=== PATIENT | male | born 1945 | race Caucasian/White ===

== ENCOUNTER 2020-04-23 07:19 | Day surgery (SDC) | payer OTHER ==
--- NOTE | 2020-04-22 07:06 | EKG ---
Test Date: 2020-04-21 Test Time: 11:52:20 [place] Administrator: LUANNE MEASUREMENT RESULTS: Intervals: Rate: 54 SD: 188 QRSD: 86 QT: 410 QTc: 388 [place]: P: 24 SD: 188 QRS: 42 T: 47 INTERPRETIVE STATEMENTS: Sinus bradycardia Otherwise normal ECG Compared to ECG 09/24/2007 05:41:30 No significant changes Electronically Signed On 04-22-20 07:04:00 CDT by Gene Carrasco
--- OUTSIDE RECORDS SUMMARY | 2020-04-23 07:29 | XMS REPORT | Continuity of Care Document ---
:1945 Author Organization [facility] t Address 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 [id number] [place] [id number] 00:00:00 Met hernández /Lor al Problems Condition Condition Condition Status Onset Resolution Last Treating Co mments Source Name Details Category Date Date Treatment Clinician Date H/O right H/O right Disease Active Jordyn stoesau coronary coronary 8-04 [facility] i artery artery 00:00: st stent stent 00 placement placement Bilateral Bilateral Disease Active Jordyn ston carotid carotid 8-04 [facility] bruits bruits 00:00: st 00 SOB SOB Disease Active [facility] (shortness (shortness 8-04 [facility] of breath) of breath) 00:00: st 00 Essential Essential Disease Active Jordyn ston hypertensi hypertensi 5-16 [facility] on 00:00: st 00 Hyperlipid Hyperlipid Disease Active John shirley 11-21 [facility] 00:00: st 00 Coronary Coronary Disease Active [place] artery artery 11-21 [facility] disease disease 00:00: st involving involving 00 [place] coronary coronary artery of artery of [place] heart heart without without angina angina pectoris pectoris Stented Stented Disease Active [place] coronary coronary 11-21 [facility] i artery artery 00:00: st 00 Allergies, Adverse Reactions, Alerts This patient has no known allergies or adverse reactions. Family History Family Member Diagnosis Comments Start Date Stop Date Source Natural mother Coronary artery [place] W[facility] disease Social History Social Habit Start Date Stop Date Quantity Comments Source Sex Assigned At Jordyn Wong Smoking Status Start Date Stop Date Source Current every day smoker 2016-11-21 00:00:00 Jordyn Wong Medications Ordered Filled Start Stop Current Ordering Indication Dosage Frequency Signature Comments Components Source Medication Medication Date Date Medication? Clinician (SIG) Name Name atorvastati Yes 20mg QD Take 1 [place] (Lipitor) 9-17 tablet (20 [facility] 20 mg 00:00: mg total) st tablet 00 by mouth daily. Default OP ins candesartan 2019-0 2020- No 32mg QD Take 32 mg [place] (ATACAND) 02-09 by mouth Metho di 32 MG 13:37: 00:[address] tablet 29 :00 MULTIVITAMI 2019- Yes QD Take by Jordyn Mckenna/IRON/FOLI 8-04 mouth [facility] C ACID 13:16: daily. st (CENTRUM 03 COMPLETE ORAL) UBIDECARENO 2019- Yes QD Take by Jordyn goldberg NE/VITAMIN 8-04 mouth [facility] E MIXED 13:16: daily. st (COQ10 SG 03 100 ORAL) aspirin 81 2020-0 Yes 81mg Chew 81 [place] mg chewable 8-04 mg. [facility] tablet 13:16: st 03 candesartan 2020-0 2020- Yes H/O right 1{tbl} QD Take 1 [place] -hydrochlor -10 14- coronary tablet by [facility] othiazid 00:00: 23:[address] (Atacand 00 :00 stent daily. HCT) placement 32-12.5 mg per tablet atorvastati 2019-0 2020- No 20mg QD Take 1 Jordyn goldberg n (Lipitor) 6-22 09-17 tablet (20 M ethodi 20 mg 00:00: 00:00 mg total) st tablet 00 :00 by mouth daily. Default OP ins atorvastati 2020- No atorvastat Rubio n (Lipitor) 09-30-25 in calcium M ethodi 20 MG 11:14: 00:[address] tablet 50 :00 atorvastati 2020- No 20mg QD Take 1 Jordyn goldberg n (Lipitor) 09-30- tablet (20 M ethodi 20 MG 00:00: 00:00 mg total) st tablet 00 :00 by mouth daily. Default OP ins atorvastati 2020- No 20mg QD Take 1 Jordyn goldberg n (LIPITOR) 09-16 03-10 tablet (20 M ethodi 20 MG 00:00: 23:59 mg total) st tablet 00 :00 by mouth daily. levothyroxi 2017-0 Yes QD daily. [place] ne 4-28 [facility] (SYNTHROID, 00:00: st LEVOXYL) 50 00 mcg tablet metoprolol 2017-0 Yes QD daily. [place] succinate 4-21 [facility] XL 00:00: st (TOPROL-XL) 00 100 mg 24 hr tablet Vital Signs Vital Name Observation Time Observation Value Comments Source Systolic blood 2020-02-10 13:15:00 179 mm[Hg] [place] [facility] pressure Diastolic blood 2020-02-10 13:15:00 84 mm[Hg] [place] [facility] pressure Heart rate 2020-02-10 13:15:00 54 /min Rubio Wong Body height 2020-02-10 13:15:00 182.9 cm Rubio Wong Body weight 2020-02-10 13:15:00 93.441 kg Rubio Wong BMI 2020-02-10 13:15:00 27.94 kg/m2 Rubio Wong Procedures Procedure Date / Time Performed Performing Clinician Sour e NM MYOCARDIAL PERFUSION 2020-03-24 15:55:07 Ofelia Sanchez REST STRESS 1 DAY CV STRESS TEST 2020-03-23 12:47:49 Ofelia Sanchez Meth odist US CAROTID DUPLEX 2020-03-09 09:49:23 Ofelia Sanchez Id thodist BILATERAL ECG 12-LEAD 2020-02-10 12:10:20 Ofelia Sanchez Meth odist Plan of Care Planned Activity Planned Date Details Comments Source Future Scheduled 2020-02-07 INFLUENZA VACCINE [place] [facility] 00:00:00 [code = INFLUENZA VACCINE] Future Scheduled 2012-12-04 65+ PNEUMOCOCCAL [place] [facility] Test 00:00:00 VACCINE (1 of 1 - PPSV23) [code = 65+ PNEUMOCOCCAL VACCINE (1 of 1 - PPSV23)] Future Scheduled 1997-12-04 COLONOSCOPY SCREENING [place] [facility] 00:00:00 [code = COLONOSCOPY SCREENING] Future Scheduled 1997-12-04 SHINGLES VACCINES (#1) [place] [facility] 00:00:00 [code = SHINGLES VACCINES (#1)] Encounters Start End Encounter Admission Attending Care Care Encounter Source Date/Time Date/Time Type Type Clinicians Facility Department ID 2020-03-23 2020-03-23 Outpatient [facility] [id number] [facility] 00:00:00 00:00:00 OFELIA 037 Method i 2020-03-09 2020-03-09 Outpatient [facility] [id number] [facility] 00:00:00 00:00:00 OFELIA 808 Method i 2020-02-10 2020-02-10 Outpatient [facility] [id number] Hall 00:00:00 00:00:00 OFELIA 938 Method i 2019-11-07 2019-11-07 Orders JEANNIE Rodriguez [id number] 00:00:00 00:00:00 Only Andrew CARRIZALES [id number] [facility] [id number] 2019-11-04 2019-11-04 Telephone HAYDEN Rodriguez [id number] 00:00:00 00:00:00 Andrew Muller [id number] [place] [id number] Professio [phone] [address] 2019-10-31 2019-10-31 Telemedici HAYDEN Rodriguez [id number] 09:51:02 16:02:50 ne Visit Andrew Muller [id number] [facility] [id number] [facility] [id number] nal [address] Building Results Test Description Test Time Test Comments Results Result Comments Source ECG 12 lead 2020-02-11 00:13:20 Test Item Value Reference Range Interpretation Comme nts Ventricular rate (test code = 253) 54 Atrial rate (test code = 255) 54 OK interval (test code = 266) 188 QRSD interval (test code = 260) 94 QT interval (test code = 264) 424 QTC interval (test code = 265) 402 P axis 1 (test code = 267) 49 QRS axis 1 (test code = 268) 59 T wave axis (test code = 270) 46 EKG impression (test code = 273) Sinus bradycardia-Otherwise normal ECG-In automated comparison with ECG of 07-JAN-2019 10:17,-No significant change was found- Rubio Wong
--- OUTSIDE RECORDS SUMMARY | 2020-04-23 07:29 | XMS REPORT | Clinical Summary ---
:1945 Author Organization [facility] Address [address] [place] [address] Care Team Providers Name Role Phone Juan Antonio Red MD Primary Care Provider Allergies Active Allergy Reactions Severity Noted Date Comments No Known Drug Allergies Medications Medication Sig Dispensed Refills Start End Date Status Date levothyroxine daily. 0 Active (SYNTHROID, 7 LEVOXYL) 50 mcg tablet metoprolol daily. 0 Active succinate XL 7 (TOPROL-XL) 100 mg 24 hr tablet MULTIVITAMIN/IRON/ Take by mouth 0 Active FOLIC ACID daily. (CENTRUM COMPLETE ORAL) UBIDECARENONE/CATRINA Take by mouth 0 Active MIN E MIXED (COQ10 daily. SG 100 ORAL) aspirin 81 mg Chew 81 mg. 0 Acti ve chewable tablet candesartan-hydroc Take 1 tablet by 90 tablet 3 08/0 10/26 Active hlorothiazid mouth daily. 0 21 (Atacand HCT) 32-12.5 mg per tabletIndications: Coronary artery disease involving te-moak coronary artery of te-[place] heart without angina pectoris, SOB (shortness of breath), Bilateral carotid bruits, H/O right coronary artery stent placement atorvastatin Take 1 tablet 90 tablet 0 Act rocío (Lipitor) 20 mg (20 mg total) by 0 tablet mouth daily. Default OP ins candesartan Take 32 mg by 0 02/10/20 Disc ontinued (ATACAND) 32 MG mouth daily. 20 ( Formulary tablet change) atorvastatin Take 1 tablet 90 tablet 3 09/16/19 Exp ired (LIPITOR) 20 MG (20 mg total) by 9 20 tablet mouth daily. atorvastatin atorvastatin 0 10/01/19 Disc ontinued (Lipitor) 20 MG calcium 20 mg 20 (Reorder) tablet tabs atorvastatin Take 1 tablet 90 tablet 0 12/29/19 Dis continued (Lipitor) 20 MG (20 mg total) by 0 20 (Reorder) tablet mouth daily. Default OP ins atorvastatin Take 1 tablet 90 tablet 0 03/25/20 Dis continued (Lipitor) 20 mg (20 mg total) by 0 20 (Reorder) tablet mouth daily. Default OP ins Active Problems Problem Noted Date H/O right coronary artery stent placement 02/10/2020 Bilateral carotid bruits 02/10/2020 SOB (shortness of breath) 02/10/2020 Chronic coronary artery disease 11/21/2016 Essential hypertension 11/21/2016 Hyperlipidemia 11/21/2016 Coronary artery disease involving te-moak coronary holly ry of te-moak heart 11/21/2016 without angina pectoris Stented coronary artery 11/21/2016 Encounters Date Type Specialty Care Team Description 03/25/2020 Orders Only Cardiology Ben Waters MA 03/23/2020 Travel 03/16/2020 Orders Only Cardiology Sharon Buckley MA Bilater al carotid bruits (Primary Dx); Coronary artery disease involving te-moak coronary artery of te-[place]ak heart without angina pectoris; H/O right coron joe artery stent placement 03/09/2020 Travel 02/10/2020 Office Visit Cardiology Ofelia Sanchez MD Coronary artery disease involving te-moak coronary artery of te-moak heart without angina pectoris (Primary Dx); SOB (shortness of breath); Bilateral carot id bruits; H/O right coron oje artery stent placement 02/10/2020 Travel 12/29/2019 Orders Only Cardiology Ben Waters MA 10/01/2019 Refill Cardiology Sharon Buckley MA Med Ref ill after 04/23/2019 Medical History Medical History Date Comments Hypertension Hyperlipidemia Coronary artery disease Family History Medical History Relation Name Comments Coronary artery disease Mother Relation Name Status Comments Mother Social History Tobacco Use Types Packs/Day Years Used Date Current Every Day Smoker Sex Assigned at Date Recorded Not on file Last Filed Vital Signs Vital Sign Reading Time Taken Comments Blood Pressure 179/84 02/10/2020 1:15 PM CDT Pulse 54 02/10/2020 1:15 PM CDT Temperature - - Respiratory Rate - - Oxygen Saturation - - Inhaled Oxygen Concentration - - Weight 93.4 kg (206 lb) 02/10/2020 1:15 PM CDT Height 182.9 cm (6') 02/10/2020 1:15 PM CDT Body Mass Index 27.94 02/10/2020 1:15 PM CDT Plan of Treatment Date Type Specialty Care Team Description 09/13/2020 Appointment Radiology Ofelia Sanchez MD [address] [place], [place] [address] [phone] 02/08/2021 Office Visit Cardiology Ofelia Sanchez MD [address] [place], [place] [address] [phone] Health Maintenance Due Date Last Done Comments COLONOSCOPY SCREENING 12/04/1997 SHINGLES VACCINES (#1) 12/04/1997 65+ PNEUMOCOCCAL VACCINE (1 of 1 - PPSV23) 12/04/2012 INFLUENZA VACCINE 02/07/2020 04/27/2019 Procedures Procedure Name Priority Date/Time Associated Comments Diagnosis NM MYOCARDIAL Routine 03/24/2020 3:55 PM Coronary artery Resu lts for this PERFUSION REST CDT disease involving procedur e are in STRESS 1 DAY te-moak coronary the results artery of te-moak section. heart without angina pectoris SOB (shortness of breath) Bilateral carotid bruits H/O right coronary artery stent placement CV STRESS TEST Routine 03/23/2020 12:47 PM Coronary artery Res ults for this CDT disease involving procedure are in te-moak coronary the results artery of te-moak section. heart without angina pectoris SOB (shortness of breath) Bilateral carotid bruits H/O right coronary artery stent placement US CAROTID DUPLEX Routine 03/09/2020 9:49 AM Coronary artery Results for this BILATERAL CDT disease involving procedure are in te-moak coronary the results artery of te[place] section. heart without angina pectoris SOB (shortness of breath) Bilateral carotid bruits H/O right coronary artery stent placement ECG 12-LEAD Routine 02/10/2020 12:10 PM Coronary artery Resul ts for this CDT disease involving procedure are in te-moak coronary the results artery of te-[place]ak section. heart without angina pectoris after 04/23/2019 Results Nm myocardial perfusion (03/24/2020 3:55 PM CDT) Specimen Narrative Performed At [facility] Cardi ology and Cardiac CT [address] [address] Myocardial Pe rfusion Imaging Report Stress ECG tracings are availab le in CX, Postcard & Tag and FanKave All ECG interpretations a re included in this report Pat.Name: GENARO CLAIRE Pat.ID: [id number]Date: 03/23/2020 Refer.MD: OFELIA SANCHEZ MD Exam Time: 4:41:00 PM Study Type:Myocardial Perfusion Imaging Height: 72in Weight: 206lb BSA: 2.16 m2 Ag e: 1945,74Y Sex: MALE Nuclea r Tech:LATONYA Cuadra Nuclear Event ID:[id number] Order ID: [id number] Reason for Study:CAD, unspecified*, Shor tness of breath Procedures: Single Day Rest / Stress Race: Clinical Symptoms:Regadenoson 0.4 mg adm inistered intravenously over 10 seconds SUMMARY: BASELINE ECG Marked sinus bradycardia STRESS TEST RESULTS Maximal Predicted HR 148 beats/minute 85% Maximal Predicted HR 126 beats/minute Stress Test Duration 1 minutes 00 seco nds Resting Heart Rate 44 beats/minute Max imal Heart Rate 80 beats/minute Resting Blood Pressure 144/88 mmHg Max imal Blood Pressure 160/90 mmHg % Maximal Heart Rate Achieved 54% Symptoms During Test Dizziness Reason for Stopping Test As per regade noson protocol Maximal ST-segment shift None Stress-Induced Arrhythmias None Ischemic electrocardiographic changes (S T-segment depression) did not occur at peak regadenoson stress. STRESS TEST INTERPRETATION Normal maría elena l regadenoson stress test. SCINTIGRAPHIC RESULTS Perfusion Defect Size (% LV) 0 % Total 0 % Ischemia 0 % Scar Left Ventricular Perfusion Results There is normal tracer distribution duri ng stress and rest. Gated SPECT Results The post-stress left ventricular ejectio n fraction is 60 % with normal regional wall motion and left ventricula r thickening. Left ventricular end-diastolic volume is 95 m l; end-systolic volume is 38 ml. The left ventricle is of normal size at stress and at rest. The right ventricle is of normal size with n ormal wall motion. Conclusion Normal regadenoson Tc-99m sestamibi myoc ardial perfusion study. The left ventricular ejection fraction is no rmal. Comments Patients with a normal stress myocardial perfusion study have a low (< 1%) annual risk of cardiac or nonf atal myocardial infarction. Study Quality/Artifacts The study quality is good. The mild redu ction in mid and basal inferolateral wall counts during stress is probably due to diaphragmatic and other soft tissue atte nuation artifacts rather than coronary artery disease. Comparison to Previous Study None available. FINDINGS: Signed 03/25/2020 07:40 PM Juan Antonio Hurtado MD Procedure Note Interface, Radiology Results In - 2019 8:19 PM CDT [facility] and Cardiac CT [address] [place] [address] Myocardial Perfusion I maging Report Stress ECG tracings are available in MUSE, Postcard [employer] Tag and FanKave All ECG interpretations are in cluded in this report Pat.Name: GENARO CLAIRE Pat.I D: [id number] .Date: 03/23/2020 Refer .MD: OFELIA SANCHEZ MD Exam Time: 4:41:00 PM Study Type:Myocardial Perfusion Imaging Height: 72in Weigh t: 206lb BSA: 2.16 m2 Age: 5 1945,74Y Sex: MALE Nucle marquez Tech:LATONYA Cuadra Nuclear Event ID:[id number] Order ID: [id number] Reason for Study:CAD, unspecified*, Shor tness of breath Procedures: Single Day Rest / Stress Race: Clinical Symptoms:Regadenoson 0.4 mg adm inistered intravenously over 10 seconds SUMMARY: BASELINE ECG Marked sinus bradycardia STRESS TEST RESULTS Maximal Predicted HR 148 beats/minute 8 5% Maximal Predicted HR 126 beats/minute Stress Test Duration 1 minutes 00 secon ds Resting Heart Rate 44 beats/minute Maxi mal Heart Rate 80 beats/minute Resting Blood Pressure 144/88 mmHg Maxi mal Blood Pressure 160/90 mmHg % Maximal Heart Rate Achieved 54% Symptoms During Test Dizziness Reason for Stopping Test As per regaden oson protocol Maximal ST-segment shift None Stress-Induced Arrhythmias None Ischemic electrocardiographic changes (S T-segment depression) did not occur at peak regadenoson stress. STRESS TEST INTERPRETATION Normal maría elena l regadenoson stress test. SCINTIGRAPHIC RESULTS Perfusion Defect Size (% LV) 0 % Total 0 % Ischemia 0 % Scar Left Ventricular Perfusion Results There is normal tracer distribution duri ng stress and rest. Gated SPECT Results The post-stress left ventricular ejectio n fraction is 60 % with normal regional wall motion and left ventricula r thickening. Left ventricular end-diastolic volume is 95 m l; end-systolic volume is 38 ml. The left ventricle is of normal size at stress and at rest. The right ventricle is of normal size with n ormal wall motion. Conclusion Normal regadenoson Tc-99m sestamibi myoc ardial perfusion study. The left ventricular ejection fraction is no rmal. Comments Patients with a normal stress myocardial perfusion study have a low (< 1%) annual risk of cardiac or nonf atal myocardial infarction. Study Quality/Artifacts The study quality is good. The mild redu ction in mid and basal inferolateral wall counts during stress is probably due to diaphragmatic and other soft tissue atte nuation artifacts rather than coronary artery disease. Comparison to Previous Study None available. FINDINGS: Signed 03/25/2020 07:40 PM Juan Antonio Hurtado MD Performing Organization Address City/[facility] Phon e Number CUP[facility] [address] [place] [address] Cv stress test (03/23/2020 12:47 PM CDT) Resting HR 44 [facility] Resting BP 144&88 [facility] Peak MET Achieved 1.0 [facility] Protocol Name LexiScan [facility] Time in Exercise 00:01:00 [facility] Phase Max Systolic BP 160 H MUSE Max Diastolic BP 90 H MUSE Max Heart Rate 80 H MUSE Max Predicted Heart 148 H MUSE Rate Target HR Formula (220 - Age)*85% H MUSE Test Indication H MUSE Arrhy During Ex [facility] ECG Interp Before EX [facility] ECG Interp During Ex H MUSE Ex Summary Comment [facility] Chest Pain Statement none [facility] Overall HR Response H MUSE to Exercise Overall BP Response H MUSE To Exercise Reason for As per Lexiscan [facility] Termination protocol Stress Test Waveform interpreted in [facility] Impression report associated with image study. No interpretation is provided as part of this Stress ECG report.-Electronically Signed By Bryant HAINES, Juan Antonio Alonzo ([id number]), editor news [place] Henriquez ([id number]) on 03/26/2020 3:24:42 PM Specimen Narrative Performed At This result has an attachment that is no t available. Performing Organization Address [facility] Phon e Number [facility] [address] [id number] Us carotid duplex (03/09/2020 9:49 AM CDT) Specimen Narrative Performed At [facility] Carotid Holly ry Ultrasound Report Pat.Name: GENARO CLAIRE Pat.ID: [id number] [facility] Refer.MD: OFELIA SANCHEZ MD Exam Time: 9:15:00 AM Study Type:C arotid Age: 5 1945,74Y Sex: MALE Sonogrphr: Whitney Emery RVT Pat. Stat.:Outp atient Room: [facility] ol: [place], CPT - 4: 26191 Echo Paty nt ID:[id number] Order ID: [id number] Reason for Study:Carotid artery disease, Hx of HLD, CAD, S/P coronary artery stenting SUMMARY: CAROTID ARTERY SCAN RIGHT: There is smooth intimal lining in the common carotid artery. There is hard and calcified plaque not ed in the bulb extending into the proximal internal carotid artery. Colorflow is undisturbed. There is antegrade flow in the vertebral artery. LEFT: There is smooth intimal li lexus in the common carotid artery. There is hard and calcified plaque noted in the bulb extending into the proximal internal car otid artery. Colorflow is undisturbed. There is antegrade flow in the vertebral artery. PRELIMINARY FINDINGS 1. <50% stenosis in the bulb/internal carotid artery, bilaterally. 2. There is antegrade flow in the verteb ral artery., bilaterally. PHYSICIAN INTERPRETATION Bilateral carotid duplex examination dem onstrated atherosclerotic plaques in the bulbs. Less than 50% stenosis in the bulb and i nternal carotid artery, bilaterally. Both vertebral arteries are antegrade. FINDINGS: Carotid Findings: Right Left Verteb.Flw Antegrade Antegrade Subclavian Triphasic Triphasic MEASUREMENTS: DOPPLER Right CCA Dist CCA Dist PSV 75.3 cm/s CCA Dist EDV 13.9 cm/s Right CCA Mid CCA Mid PSV 73.9 cm/s CCA Mid EDV 13.9 cm/s Right CCA Prox CCA Prox PSV 72.5 cm/s CCA Prox EDV 9.76 cm/s Right Bulb Bulb PSV 62.7 cm/s Bulb EDV 12.5 cm/s Right ECA Prox ECA Prox PSV 100 cm/s ECA Prox EDV 6.97 cm/s Right ICA Dist ICA Dist PSV 87.8 cm/s ICA Dist EDV 25.1 cm/s Right ICA Mid ICA Mid PSV 69.3 cm/s ICA Mid EDV 18.2 cm/s Right ICA Prox ICA Prox PSV 62 cm/s ICA Prox EDV 12.2 cm/s Right Vertebral Vertebral PSV 46 cm/s Vertebral EDV 5.58 cm/s Right SCA Prox SCA Prox PSV 96.2 cm/s SCA Prox EDV 0 cm/s Left CCA Dist CCA Dist PSV 75.3 cm/s CCA Dist CCA Dist EDV 14 cm/s Left CCA Prox CCA Prox PSV 97.6 cm/s CCA Prox EDV 12.5 cm/s Left Bulb Bulb PSV 61.3 cm/s Bulb EDV 11.2 cm/s Left ECA Prox ECA Prox PSV 86.4 cm/s ECA Prox EDV 4.18 cm/s Left ICA Dist ICA Dist PSV 96.2 cm/s ICA Dist EDV 29.3 cm/s Left ICA Mid ICA Mid PSV 86.4 cm/s ICA Mid EDV 26.5 cm/s Left ICA Prox ICA Prox PSV 87.8 cm/s ICA Prox EDV 20.9 cm/s Left Vertebral Vertebral PSV 48.8 cm/s Vertebral EDV 9.76 cm/s Left SCA Prox SCA Prox PSV 120 cm/s SCA Prox EDV 0 cm/s Left CCA Mid CCA Mid PSV 85 cm/s CCA Mid EDV 15 cm/s Right ICA/CCA Ratio ICA/CCA PSV 0.839 Left ICA/CCA Ratio ICA/CCA PSV 1.03 Signed 03/10/2020 02:31 PM Ofelia Sanchez MD Procedure Note Interface, Radiology Results In - 2019 2:31 PM CDT [facility] Carotid Artery Ultras ound Report Pat.Name: GENARO CLAIRE Pat.I D: [id number] St.Date: 03/09/2020 Refer .MD: OFELIA SANCHEZ MD Exam Time: 9:15:00 AM Study Type:Carotid Age: 5 1945,74Y Sex: MALE Sonogrphr: Whitney Emery RVT Pat. Stat.:Outpatient Room: [facility] Vol: [place], [facility] - 4: [id number] Echo Event ID:[id number] Order ID: [id number] Reason for Study:Carotid artery disease, Hx of HLD, CAD, S/P coronary artery stenting SUMMARY: CAROTID ARTERY SCAN RIGHT: There is smooth intimal lining i n the common carotid artery. There is hard and calcified plaque note d in the bulb extending into the proximal internal carotid artery. C olorflow is undisturbed. There is antegrade flow in the vertebral artery. LEFT: There is smooth intimal linin g in the common carotid artery. There is hard and calcified pl aque noted in the bulb extending into the proximal internal car otid artery. Colorflow is undisturbed. There is antegrade flow i n the vertebral artery. PRELIMINARY FINDINGS 1. <50% stenosis in the bulb/internal c arotid artery, bilaterally. 2. There is antegrade flow in the verteb ral artery., bilaterally. PHYSICIAN INTERPRETATION Bilateral carotid duplex examination dem onstrated atherosclerotic plaques in the bulbs. Less than 50% stenosis in the bulb and i nternal carotid artery, bilaterally. Both vertebral arteries are antegrade. FINDINGS: Carotid Findings: Right Left Verteb.Flw Antegrade Antegrade Subclavian Triphasic Triphasic MEASUREMENTS: DOPPLER Right CCA Dist CCA Dist PSV 75.3 cm/s CCA Dist EDV 13.9 cm/s Right CCA Mid CCA Mid PSV 73.9 cm/s CCA Mid EDV 13.9 cm/s Right CCA Prox CCA Prox PSV 72.5 cm/s CCA Prox EDV 9.76 cm/s Right Bulb Bulb PSV 62.7 cm/s Bulb EDV 12.5 cm/s Right ECA Prox ECA Prox PSV 100 cm/s ECA Prox EDV 6.97 cm/s Right ICA Dist ICA Dist PSV 87.8 cm/s ICA Dist EDV 25.1 cm/s Right ICA Mid ICA Mid PSV 69.3 cm/s ICA Mid EDV 18.2 cm/s Right ICA Prox ICA Prox PSV 62 cm/s ICA Prox EDV 12.2 cm/s Right Vertebral Vertebral PSV 46 cm/s Vert ebral EDV 5.58 cm/s Right SCA Prox SCA Prox PSV 96.2 cm/s SCA Prox EDV 0 cm/s Left CCA Dist CCA Dist PSV 75.3 cm/s CCA Dist CCA Dist EDV 14 cm/s Left CCA Prox CCA Prox PSV 97.6 cm/s CCA Prox EDV 12.5 cm/s Left Bulb Bulb PSV 61.3 cm/s Bulb EDV 11.2 cm/s Left ECA Prox ECA Prox PSV 86.4 cm/s ECA Prox EDV 4.18 cm/s Left ICA Dist ICA Dist PSV 96.2 cm/s ICA Dist EDV 29.3 cm/s Left ICA Mid ICA Mid PSV 86.4 cm/s ICA Mid EDV 26.5 cm/s Left ICA Prox ICA Prox PSV 87.8 cm/s ICA Prox EDV 20.9 cm/s Left Vertebral Vertebral PSV 48.8 cm/s Vert ebral EDV 9.76 cm/s Left SCA Prox SCA Prox PSV 120 cm/s SCA Prox EDV 0 cm/s Left CCA Mid CCA Mid PSV 85 cm/s CCA Mid EDV 15 cm/s Right ICA/CCA Ratio ICA/CCA PSV 0.839 Left ICA/CCA Ratio ICA/CCA PSV 1.03 Signed 03/10/2020 02:31 PM Ofelia Sanchez MD Performing Organization Address City/State/ZIP Code Phon e Number [facility] [address] [place] [address] ECG 12 lead (02/10/2020 12:10 PM CDT) Pathologist Sig nature Ventricular rate 54 [facility] Atrial rate 54 [facility] [place] interval 188 [facility] QRSD interval 94 [facility] QT interval 424 [facility] QTC interval 402 [facility] P axis 1 49 [facility] QRS axis 1 59 [facility] T wave axis 46 [facility] EKG impression Sinus [facility] bradycardia-Otherwise normal ECG-In automated comparison with ECG of 07-JAN-2019 10:17,-No significant change was found- Specimen Narrative Performed At This result has an attachment that is no t available. Performing Organization Address [facility] Phon e Number [facility] [address] [place] [address] after 04/23/2019 Insurance Payer Benefit Plan / Subscriber ID Effective Phone Address T ype Group Dates MEDICARE MEDICARE PART A [id number] 2012-[place], [place] Medicare AND B ent COMMERCIAL MISC MISC COMMERCIAL [id number] 2016-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
[2020-04-23] MEDS ORDERED: FENTANYL CITR 100 MCG/2 ML ONE (08:30)
[2020-04-23] MEDS ORDERED: propofoL 200 MG/20 ML VIAL IV ONE ×2 (08:30→10:58)
[2020-04-23] MEDS ORDERED: LIDOCAINE 2% MPF 5 ML VIAL ONE (08:31)
[2020-04-23] MEDS ORDERED: ONDANSETRON 4 MG/2 ML VIAL ONE (08:31)
[2020-04-23] MEDS ORDERED: Ringers Lactate 1,000 ML IV ONE (08:33)
[2020-04-23] MEDS ORDERED: LIDOCAINE 1% W/EPI 1:100,000 MDV 20 ML VIAL ONE (10:37)
[2020-04-23] MEDS ORDERED: BUPIVACA 0.5%/EPI 0.0005%/PF 30 ML VIAL ONE (10:38)
[2020-04-23 13:21] VITALS: BP 158/69; TEMP 96.1; O2SAT 97
--- NOTE | 2020-04-25 14:57 | OP ---
Surgeon: Gayathri Shoemaker MD Preoperative Diagnosis: Basal cell carcinoma of the right ear. Postoperative Diagnosis: Basal cell carcinoma of the right ear x2. Procedure: Excision, confirmed basal cell carcinoma, right antitragus excision/excisional biopsy, coker spicious-appearing lesion of , right antihelix with closure by local tissue rearrangement and flap. Indication For Procedure: Mr. Claire presented to clinic with a biopsy confirmed basal cell carcinom a of the right antitragus with persistent crusting approximately 6 weeks following the biopsy, ivana dominguez suspicion for persistent disease due to the location and concern for cartilage involvement based on clinical palpation of the wound. A recommended procedure to be done in the operating room. Description Of Procedure: Initial preparations were made for procedure under monitored anesthesia ca re and sedation, however, due to the patient's history of tobacco use and coughing during the procedu re, a preparation stage decision was made to convert to a general anesthetic with placement of a denzel ngeal mask airway. After adequate preparations, right ear was cleaned with alcohol and injected with local anesthetic. The ear was then cleaned with Betadine and draped in the standard sterile fashion . During the patient's preoperative visit, it was noted to have some complaints of lesions of the ri ght helix, right antihelix in addition to the lesion of his right anterior tragus. During inspection and preoperative visit, these areas of patient concerned appeared to be consistent with actinic sebastián tosis and plan for referral to a skidder driver was made. However, during the preparation, the lesion of the antihelix was friable and with minimal abrasion was noted to bleed raising suspicion for deep er involvement. The helix did not appear to have any such concerning areas. Therefore, intraoperati ve decision was made to excise the area of the antihelix as a lesion of uncertain behavior. Incision was begun at the lesion of the antitragus. The prior biopsy site was fully excised with a margin of tissue. The depths of incision included some areas of cartilage of the antitragus and the very infe rior aspects of the antihelix. A suture was placed at the superior most aspect and marked as 12 o'cl ock and sent to the pathologist for frozen section analysis. While awaiting that an excision around the lesion of the antitragus including full-thickness skin excision to the level of the perichondrium was excised and marked with a suture at the superior most aspect indicating 12 o'clock and was likew ise sent to pathology. The defect of the antihelix site was approximately 1.5 x [address] The defe ct of the antihelix site was approximately 1 cm round. Both lesions were confirmed to contain the ba larissa cell carcinoma with a positive 9 o'clock margin on the antitragus. A new 9 o'clock margin was co llected with a true margin marked with ink and sent to pathology for frozen section analysis. This n ew margin was confirmed negative and options for closure and reconstruction were considered. There w as approximately 1 cm bridge of tissue. The skin between the 2 defects and a curvilinear incision wa s made to create a flap, which was then rotated superiorly into the antitragus defect. Cartilaginous tissue along the antitragus inferior aspect of the antihelix was carefully shaved in order to create a smoother curvature significant dissection laterally and inferiorly to the inferior portion of the helix and earlobe were undertaken and this tissue was advanced medially to cover the defect. A 1 cm Burow's triangle was removed from the earlobe in order to improve closure in the area. The rotationa l and advancement flaps were secured using a 4-0 Vicryl and the skin was closed using a plain gut abs orbable suture. There was mild tension in the medial most aspect of the antihelix site, but given th e overall location and telemetry with the concavity of the cartilage in this area, I elected to allow this area to granulate in if necessary based on the overall healing. The skin around the ear was cl eaned and dried and triple antibiotic ointment was applied to the incision. The patient was then tra nsferred to the recovery room and will be sent home later today with local wound care and follow up w osman Shoemaker in 10 days for evaluation. DONN/ERVIN Voice ID: [id number] Report ID: [id number]
== END 2020-04-23 13:18 | disposition home or self-care (01) ==
LOC: OR 07:19
PROVIDERS: ATTEND Otolaryngology
PROC: 0HX2XZZ Transfer Right Ear Skin, External Approach (ICD-10-PCS; principal; 2020-04-23 09:45)
DX: C44.212 Basal cell carcinoma of skin of right ear and external auricular canal (principal); I10 Essential (primary) hypertension; E78.5 Hyperlipidemia, unspecified; Z20.828 Contact with and (suspected) exposure to other viral communicable diseases
CPT/HCPCS: 93005; 88331; 88332; 88305; 14060; U0002; J2704 ×2; J3010; J7120; J2405